=== PATIENT | female | born 1995 | race Two or more races ===

== ENCOUNTER 2017-07-31 15:28 | Emergency (ER) | payer BC, MEDICAID ==
[~2017-07-31] VITALS: Ht 152.4 cm; Wt 75.4 kg
== END 2017-07-31 16:56 ==
LOC: ED 16:46
DX: T68.XXXA Hypothermia, initial encounter (principal); X31.XXXA Exposure to excessive natural cold, initial encounter; Y93.89 Activity, other specified; Y92.89 Other specified places as the place of occurrence of the external cause; Y99.8 Other external cause status
CPT/HCPCS: 99281